=== PATIENT | female | born 1985 | race Caucasian/White ===

== ENCOUNTER 2016-12-26 11:26 | Emergency (ER) | payer OTHER ==
[~2016-12-26] VITALS: Ht 157.5 cm; Wt 59.9 kg
[2016-12-26 11:26] VITALS: BP 137/84
[~2016-12-26 11:26] MED LIST: ACET500T68 PO
--- NOTE | 2016-12-26 12:37 | RAD ---
Three-view study of the left wrist Indications: Picked up a 50 pound box and heard a crack/pop in left wrist. Left wrist pain. Findings: No acute fracture or dislocation or osteolytic process is seen. Alignment is normal. IMPRESSION: No acute fracture.
--- NOTE | 2016-12-26 12:41 | PHYS DOC ---
General Chief Complaint: WRIST PAIN Stated Complaint: WRIST PAIN Time Seen by MD: 11:39 Source: patient Exam Limitations: no limitations Problems: History of Present Illness Initial Comments Patient is a 31-year-old female who comes emergency department complaining of a Worker's Compensation injury to her left wrist. Patient states immediately prior to ED arrival she was at work lifting a 50 pound box of labels over her head. She says while she was struggling with the box over her head she felt a pop at her posterior medial wrist causing severe pain. She states that currently she has pain at her medial wrist which radiates proximally up to her elbow. Symptoms are better with rest worsened with moving and jarring. She denies numbness tingling weakness or radiating symptoms otherwise. No pre-arrival treatment patient is normally healthy immunizations are up-to-date. Onset: just prior to arrival Severity: mild Pain/Injury Location: left wrist Method of Injury: other Modifying Factors: worse with jarring, worse with movement, improves with rest Allergies: Coded Allergies: mupirocin (Verified Allergy, Unknown, Rash, 01/17/16) Past Medical History Medical History: no pertinent history Surgical History: noncontributory, other Social History Smoker: non-smoker Alcohol: none Drugs: none Review of Systems Constitutional: denies chills, denies fever Respiratory: denies cough, denies shortness of breath Cardiovascular: denies chest pain, denies palpitations Gastrointestinal: denies diarrhea, denies nausea, denies vomiting Musculoskeletal: see HPI Psychiatric/Neurological: see HPI Physical Exam General Appearance: WD/WN, no apparent distress Neck: non-tender, supple Cardiovascular/Respiratory: normal peripheral pulses, no respiratory distress Wrist: limited ROM, soft tissue tenderness (generalized medial left wrist tenderness without focality, no swelling ecchymosis or skin changes noted. No palpable bony deformity and no bony tenderness ligaments and tendons are intact. Extremity is neurovascularly intact.) Hand: normal inspection, non-tender, no evidence of injury Neurologic/Tendon: normal sensation, normal motor functions, normal tendon functions, responds to pain, no evidence tendon injury Psychiatric: alert, oriented x 3 Skin: normal color, warm/dry Orders, Labs, Meds PATIENT: GASTON GRAHAM ACCOUNT: [id number] : 1985 LOCATION: ER AGE: 31 SEX: F EXAM STATUS: REG ER ORD. PHYSICIAN: NIKO AKBAR DO REASON: trauma/pain PROCEDURE: WRIST 3V LEFT Three-view study of the left wrist Indications: Picked up a 50 pound box and heard a crack/pop in left wrist. Left wrist pain. Findings: No acute fracture or dislocation or osteolytic process is seen. Alignment is normal. IMPRESSION: No acute fracture. DICTATED AND SIGNED BY: SERENA JOINER MD DATE: 12/26/16 1233 CC: PCP,RADHA; NIKO AKBAR DO ~ I was notified by staff that we did not have a splint to fit the patient. She was placed in an Jorge wrap neurovascularly intact after application. She received a prescription to fill for a splint. Departure Time of Disposition: 12:47 Disposition: 01 HOME, SELF-CARE Diagnosis: left wrist sprain Condition: GOOD Patient Instructions: JAIDEN - Routine Care for Injuries, [id number], Wrist Pain, [id number] Additional Instructions: JAIDEN, see handout. Work restriction: no use left hand until cleared by doctor. Wear splint left wrist as needed. OTC tylenol/ibuprofen as needed. Follow up with your doctor next week for recheck and further activity restriction modifications. Follow up with your employer regarding Work Comp. Return to ED with new or changing symptoms. NIKO AKBAR DO Dec 26, 2016 12:41
== END 2016-12-26 12:55 | disposition home or self-care (01) ==
LOC: ER 11:26
DX: S63.502A Unspecified sprain of left wrist, initial encounter (principal); Z88.1 Allergy status to other antibiotic agents; X58.XXXA Exposure to other specified factors, initial encounter; Y93.89 Activity, other specified; Y99.8 Other external cause status; Y92.89 Other specified places as the place of occurrence of the external cause
CPT/HCPCS: 73110; 99284

== ENCOUNTER → 2019-12-10 | Outpatient (CLI) | payer OTHER ==
--- NOTE | 2019-12-10 14:53 | RAD ---
EXAMINATION: DIGITAL DIAGNOSTIC BILATERAL History: Reason: L BREAST LUMP / Spl. Instructions: / History: Comparison: None. This exam is the baseline. Technique: Bilateral digital diagnostic mammogram views were obtained. CAD was utilized. 3-D tomosynthesis images were acquired. Findings: Breast Tissue Density B : There are scattered areas of fibroglandular density. There are no dominant masses, suspicious microcalcifications, or architectural distortion. Far left posterior outer breast 0.4 cm diameter asymmetry identified represents a lymph node is present. It is smoothly marginated. A larger lymph node is present at the left upper-outer breast. Asymmetry at the left outer breast otherwise is also seen but no suspicious mass lesion evident on spot compression imaging. This probably represents asymmetric glandular tissue. No palpable abnormalities present at the site of the marker placed at the left upper outer breast. IMPRESSION: No suspicious finding to correspond with the palpable abnormality reported at the left upper-outer breast. Small asymmetry in the far posterior left outer breast probably represents a lymph node. Further evaluation ultrasound examination of the left upper-outer breast and axilla is recommended. BI-RADS Category 0: Incomplete: Need additional imaging evaluation. The images were reviewed with computer aided detection. Patient information is entered into the reminder system with a target due date for the next screening mammogram. Mammography is the most sensitive method for finding small breast cancers, but it does not detect them all and is not a substitute for careful clinical examination. A negative mammogram does not negate a clinically suspicious finding and should not result in delay in biopsying a clinically suspicious abnormality. "Our facility is accredited by the [employer] Mammography Program." Electronically signed by: Bran Frias MD (12/10/2019 2:49 PM) [place] [id number]
== END ==
LOC: MAMMO 13:24
PROVIDERS: ATTEND Nurse Practitioner Family
DX: N63.21 Unspecified lump in the left breast, upper outer quadrant (principal)
CPT/HCPCS: 77066

== ENCOUNTER → 2020-01-08 | Outpatient (CLI) | payer OTHER ==
--- NOTE | 2020-01-08 13:54 | RAD ---
Examination: Limited left breast ultrasound. INDICATION: 34-year-old woman with left breast lump recommended for ultrasound evaluation following initial diagnostic mammographic imaging. She reports that she experiences areas of intermittent pain and firmness in the lateral left breast that comes and goes. At this visit, the area of palpable concern has resolved. Patient reports a history of breast cancer in first and second degree relatives at ages 65 and 55. COMPARISON: Bilateral baseline diagnostic mammogram of 12/10/2019 FINDINGS: Targeted ultrasound of the patient's reported area of palpable concern in the approximate 1:00 position 8 cm from the nipple reveals a sonographically benign 5 mm oval circumscribed parallel orientation hypoechoic mass with low-level internal echoes. Adjacent to it is more heterogeneously hypoechoic tissue with posterior shadowing that could reflect an area of evolving noncalcified fat necrosis. Sonographic survey of the left axilla was unremarkable. Given the resolution clinical symptoms by this visit, the benign mammographic findings on initial evaluation on 12/10/2019, and the benign findings on targeted ultrasound at this visit, this area is felt to represent probable benign sonographic finding and is recommended for short-term follow-up mammographic imaging in 6 months with option of targeted left breast ultrasound at that time as well if indicated. IMPRESSION: Probably benign ultrasound findings in the left breast. Recommend six-month follow-up left diagnostic mammogram with possible ultrasound. BI-RADS Category 3 Probably benign findings
== END | disposition home or self-care (01) ==
LOC: US 12:48
PROVIDERS: ATTEND Nurse Practitioner Family
DX: R92.8 Other abnormal and inconclusive findings on diagnostic imaging of breast (principal); N63.21 Unspecified lump in the left breast, upper outer quadrant
CPT/HCPCS: 76641

== ENCOUNTER 2020-02-13 18:15 | Emergency (ER) | payer SELFPAY ==
[~2020-02-13] VITALS: Ht 157.5 cm; Wt 72.7 kg
[2020-02-13 18:24] VITALS: BP 136/92
[2020-02-13] MEDS ORDERED: BUTA1TAB23 PO (18:42)
[2020-02-13] MEDS ORDERED: ONDA4TAB12 PO (18:42)
--- NOTE | 2020-02-13 18:43 | PHYS DOC ---
Past History Past Medical History: No Pertinent History Past Surgical History: Tubal ligation Alcohol Use: Occasionally Drug Use: None General Adult EDM: Chief Complaint: HEADACHE HPI: HPI: Patient is a [age] year old [sex] who presents with [] Review of Systems: Review of Systems: Constitutional: Denies fever or chills Eyes: Denies change in visual acuity HENT: Denies nasal congestion or sore throat Respiratory: Denies cough or shortness of breath Cardiovascular: Denies chest pain or edema GI: Denies abdominal pain, nausea, vomiting, bloody stools or diarrhea : Denies dysuria Musculoskeletal: Denies back pain or joint pain Integument: Denies rash Neurologic: Denies headache, focal weakness or sensory changes Endocrine: Denies polyuria or polydipsia Lymphatic: Denies swollen glands Psychiatric: Denies depression or anxiety Heart Score: Risk Factors: Risk Factors: DM, Current or recent (<one month) smoker, HTN, HLP, family history of CAD, obesity. Risk Scores: Score 0 - 3: 2.5% MACE over next 6 weeks - Discharge Home Score 4 - 6: 20.3% MACE over next 6 weeks - Admit for Clinical Observation Score 7 - 10: 72.7% MACE over next 6 weeks - Early Invasive Strategies Allergies: Allergies: Allergies Coded Allergies Type Severity Reaction Last Updated Verified mupirocin Allergy Unknown Rash 01/17/16 Yes Physical Exam: PE: Constitutional: Well developed, well nourished, no acute distress, non-toxic appearance. [] HENT: Normocephalic, atraumatic, bilateral external ears normal, oropharynx moist, no oral exudates, nose normal. [] Eyes: PERRLA, EOMI, conjunctiva normal, no discharge. [] Neck: Normal range of motion, no tenderness, supple, no stridor. [] Cardiovascular:Heart rate regular rhythm, no murmur [] Lungs & Thorax: Bilateral breath sounds clear to auscultation [] Abdomen: Bowel sounds normal, soft, no tenderness, no masses, no pulsatile masses. [] Skin: Warm, dry, no erythema, no rash. [] Back: No tenderness, no CVA tenderness. [] Extremities: No tenderness, no cyanosis, no clubbing, ROM intact, no edema. [] Neurologic: Alert and oriented X 3, normal motor function, normal sensory function, no focal deficits noted. [] Psychologic: Affect normal, judgement normal, mood normal. [] Current Patient Data: Vital Signs: Vital Signs Date Time Temp Pulse Resp B/P (MAP) Pulse Ox O2 Delivery O2 Flow Rate FiO2 02/13/20 18:24 97.9 102 18 136/92 (107) 100 EKG: EKG: [] Radiology/Procedures: Radiology/Procedures: [] Course & Med Decision Making: Course & Med Decision Making Pertinent Labs and Imaging studies reviewed. (See chart for details) [] Dragon Disclaimer: Dragon Disclaimer: This electronic medical record was generated, in whole or in part, using a voice recognition dictation system. Departure Departure: Impression: Primary Impression: Post-concussion headache Disposition: 01 HOME/RESIDENCE PRIOR TO ADM Condition: STABLE Referrals: JOSUE BRUNNER (PCP) NIKHIL BARRY MD Patient Instructions: Concussion and Brain Injury, [id number]-bz-[id number], Headache, FAQs Scripts Ondansetron (ONDANSETRON ODT) 4 Mg Tab.rapdis 1 TAB PO PRN Q6-8HRS PRN for NAUSEA, #16 TAB Prov: JEROD ADHIKARI DO 02/13/20 Butalb/Acetaminophen/Caffeine ([id number] 50-325-40) 1 Each Tablet 1 EACH PO Q6HRS PRN for HEADACHE, #14 TAB Prov: JEROD ADHIKARI DO 02/13/20 Justification of Admission: Justification of Admission: Justification of Admission Dx: N/A JEROD ADHIKARI DO Feb 13, 2020 18:43
[2020-02-13] MEDS ORDERED: ONDANSETRON ODT 4 MG TAB.RAPDIS PO ONE (18:45)
[2020-02-13] MEDS ORDERED: BUTALB/APAP/CAFEIN 50/325/40MG TABLET. PO ONE (18:45)
[2020-02-13] MEDS ORDERED: DEXAMETHASONE SOD PHOS 10 MG/ML VIAL. IM ONE (18:45)
== END 2020-02-13 18:51 | disposition home or self-care (01) ==
LOC: ER 18:15
DX: R51 Headache (principal); F07.81 Postconcussional syndrome; Z88.1 Allergy status to other antibiotic agents
CPT/HCPCS: 99281

== ENCOUNTER 2020-04-03 14:51 | Emergency (ER) | payer BC ==
[~2020-04-03] VITALS: Ht 157.5 cm; Wt 59.1 kg
[~2020-04-03 14:51] MED LIST changes: +BUTA1TAB23 PO; +ONDA4TAB12 PO
--- NOTE | 2020-04-03 15:22 | PHYS DOC ---
Past History Past Medical History: No Pertinent History (JUVENAL HAND APRN) Past Surgical History: Tubal ligation (JUVENAL HAND APRN) Smoking: Cigarettes Alcohol Use: Occasionally Drug Use: None (JUVENAL HAND APRN) Adult General Chief Complaint Chief Complaint: HEAD INJURY/TRAUMA HPI HPI Patient is a 34 old female patient who presents with head pain after striking her head on an object today. Patient reports she was in her bathroom, and a broken up, she went to stand up, striking her neck and head on the drawer. Reports this occurred possibly 1 hour prior to her come to the ER, states she just saw stars, states she did not lose consciousness. Reports she had a prior similar episode approximately 1 month ago, with altered mental status at that time, reports she is concerned was to make sure that nothing is wrong after striking her head against a day as she has continued to have some pain in her neck and pain in her head. She had taken 500mg naproxen after the incident, but still continues to have pain. States she does have pain when she moves her head to the right, denies any visual changes, denies any loss of bowel or bladder. Denies any chance of at this time. She does report she has a history of migraines, which have been onset for stimuli such as bright lights or loud noises, states none of these have happened with her today. The states she takes naproxen for these and they usually help. (JUVENAL HAND APRN) Review of Systems Review of Systems Constitutional: Denies fever or chills [] Eyes: Denies change in visual acuity, redness, does report pain behind her eyes, similar to a migraine started after striking her head and has been getting worse since that time [] HENT: Denies nasal congestion or sore throat [] Respiratory: Denies cough or shortness of breath [] Cardiovascular: No additional information not addressed in HPI [] GI: Denies abdominal pain, nausea, vomiting, bloody stools or diarrhea [] : Denies dysuria or hematuria [] Musculoskeletal: Denies back pain or joint pain [] Integument: Denies rash or skin lesions [] Neurologic: Denies focal weakness or sensory changes [] does report headache Endocrine: Denies polyuria or polydipsia [] All other systems were reviewed and found to be within normal limits, except as documented in this note. (JUVENAL HAND APRN) Allergies Allergies Allergies Coded Allergies Type Severity Reaction Last Updated Verified mupirocin Allergy Unknown Rash 01/17/16 Yes (JUVENAL HAND APRN) Physical Exam Physical Exam Constitutional: Well developed, well nourished, no acute distress, non-toxic appearance. [] HENT: Normocephalic, atraumatic, bilateral external ears normal, oropharynx moist, no oral exudates, nose normal. Eyes: PERRLA, EOMI, conjunctiva normal, no discharge. [] Neck: Normal range of motion, no tenderness, supple, no stridor. [] Tenderness to C2-C3 area without bruising or erythema. No discomfort moving head to left, does report discomfort when moving to head to right. No discomfort when moving head up or down. [] Cardiovascular:Heart rate regular rhythm, no murmur [] Lungs & Thorax: Bilateral breath sounds clear to auscultation [] Abdomen: Bowel sounds normal, soft, no tenderness, no masses, no pulsatile masses. [] Skin: Warm, dry, no erythema, no rash. [] Back: No tenderness, no CVA tenderness. [] Extremities: No tenderness, no cyanosis, no clubbing, ROM intact, no edema. [] Neurologic: Alert and oriented X 3, normal motor function, normal sensory function, no focal deficits noted. [] Psychologic: Affect normal, judgement normal, mood normal. [] (JUVENAL HAND APRN) EKG EKG [] (JUVENAL HAND APRN) Radiology/Procedures Radiology/Procedures []PROCEDURE: CT HEAD AND CERVICAL SPINE WO EXAM: CT Head without IV contrast INDICATION: Reason: neck pain, blunt trauma / Spl. Instructions: / History: TECHNIQUE: Multi-detector row CT images were obtained of the head without the use of IV contrast. All CT scans performed at this facility utilize dose optimization techniques as appropriate to the exam, including the following: Automated exposure control and adjustment of the mA and/or KV according to patient size (this includes techniques or standardized protocols for targeted exams where dose is indication/reason for exam). COMPARISON: None FINDINGS: BRAIN PARENCHYMA: No evidence of acute intraparenchymal hemorrhage or infarct. No abnormal parenchymal density or mass. VENTRICLES & EXTRA-AXIAL SPACES: Ventricles are within normal limits. Basilar cisterns are patent. No pathologic extra-axial fluid collection or mass. ORBITS: Orbital contents are unremarkable. SINUSES: Visualized paranasal sinuses and mastoid air cells are clear. OSSEOUS & SOFT TISSUES: Calvarium and skull base are intact. IMPRESSION: Normal CT of the head without contrast. EXAM: CT Cervical Spine without IV contrast INDICATION: Reason: neck pain, blunt trauma / Spl. Instructions: / History: TECHNIQUE: Multi-detector row CT images were obtained through the cervical spine without the use of IV contrast. Post-processing sagittal and coronal reconstructed images were obtained for interpretation. All CT scans performed at this facility utilize dose optimization techniques as appropriate to the exam, including the following: Automated exposure control and adjustment of the mA and/or KV according to patient size (this includes techniques or standardized protocols for targeted exams where dose is indication/reason for exam). COMPARISON: None FINDINGS: CRANIOCERVICAL JUNCTION: Unremarkable. ALIGNMENT: Alignment is within normal limits. OSSEOUS: No evidence of fracture or bone destruction. DISC SPACES: Unremarkable. FACET JOINTS: Unremarkable. SPINAL CANAL: Unremarkable. NEUROFORAMINA: Unremarkable. SOFT TISSUES: Unremarkable. IMPRESSION: Normal CT of the cervical spine. Electronically signed by: Blanquita Pineda MD (04/03/2020 3:39 PM) [facility] (JUVENAL HAND APRN) Heart Score Risk Factors: Risk Factors: DM, Current or recent (<one month) smoker, HTN, HLP, family history of CAD, obesity. Risk Scores: Risk Factors: DM, Current or recent (<one month) smoker, HTN, HLP, family history of CAD, obesity. (JUVENAL HAND APRN) Course & Med Decision Making Course & Med Decision Making Pertinent Labs and Imaging studies reviewed. (See chart for details) [] Reviewed results with patient with no noted deformity or concerning findings on her imaging, discussed with patient again importance of resting, trying to avoid additional head trauma. Patient in agreement to return home, take naproxen, follow-up with her primary care as needed. Patient does report she only came in today because her primary care office was closed. Patient no further questions or concerns this time. (JUVENAL HAND APRN) Dragon Disclaimer Dragon Disclaimer This electronic medical record was generated, in whole or in part, using a voice recognition dictation system. (JUVENAL HAND APRN) Departure Departure: Impression: Primary Impression: Head injury due to trauma Additional Impression: Concussion Disposition: 01 DC HOME SELF CARE/HOMELESS Condition: GOOD Referrals: JOSUE BRUNNER (PCP) Patient Instructions: Concussion and Brain Injury Additional Instructions: As we discussed, make sure you are given your brain a couple days rest. Avoid any high brain stimulating activities for the next 3 to 4 days. Try to give your brain a few days of rest to prevent further headaches and continue to take Tylenol ibuprofen or naproxen as needed for discomfort. Attending Signature Attending Signature I have reviewed the PA/ANALYTICAL STATISTICIAN's note and plan of care. I was available for con sultation as needed during the patient's visit in the emergency department. I agree with the clinical impression, plan, and disposition. (JEROD ADHIKARI DO) Problem Qualifiers Primary Impression: Head injury due to trauma Encounter type: initial encounter Qualified Codes: S09.90XA - Unspecified injury of head, initial encounter Additional Impression: Concussion Encounter type: initial encounter Loss of consciousness presence/duration: without LOC Qualified Codes: S06.0X0A - Concussion without loss of consciousness, initial encounter JUVENAL HAND APRN Apr 03, 2020 15:21 JEROD ADHIKARI DO Apr 03, 2020 22:06
--- NOTE | 2020-04-03 15:42 | RAD ---
EXAM: CT Head without IV contrast INDICATION: Reason: neck pain, blunt trauma / Spl. Instructions: / History: TECHNIQUE: Multi-detector row CT images were obtained of the head without the use of IV contrast. All CT scans performed at this facility utilize dose optimization techniques as appropriate to the exam, including the following: Automated exposure control and adjustment of the mA and/or KV according to patient size (this includes techniques or standardized protocols for targeted exams where dose is indication/reason for exam). COMPARISON: None FINDINGS: BRAIN PARENCHYMA: No evidence of acute intraparenchymal hemorrhage or infarct. No abnormal parenchymal density or mass. VENTRICLES & EXTRA-AXIAL SPACES: Ventricles are within normal limits. Basilar cisterns are patent. No pathologic extra-axial fluid collection or mass. ORBITS: Orbital contents are unremarkable. SINUSES: Visualized paranasal sinuses and mastoid air cells are clear. OSSEOUS & SOFT TISSUES: Calvarium and skull base are intact. IMPRESSION: Normal CT of the head without contrast. EXAM: CT Cervical Spine without IV contrast INDICATION: Reason: neck pain, blunt trauma / Spl. Instructions: / History: TECHNIQUE: Multi-detector row CT images were obtained through the cervical spine without the use of IV contrast. Post-processing sagittal and coronal reconstructed images were obtained for interpretation. All CT scans performed at this facility utilize dose optimization techniques as appropriate to the exam, including the following: Automated exposure control and adjustment of the mA and/or KV according to patient size (this includes techniques or standardized protocols for targeted exams where dose is indication/reason for exam). COMPARISON: None FINDINGS: CRANIOCERVICAL JUNCTION: Unremarkable. ALIGNMENT: Alignment is within normal limits. OSSEOUS: No evidence of fracture or bone destruction. DISC SPACES: Unremarkable. FACET JOINTS: Unremarkable. SPINAL CANAL: Unremarkable. NEUROFORAMINA: Unremarkable. SOFT TISSUES: Unremarkable. IMPRESSION: Normal CT of the cervical spine. Electronically signed by: Blanquita Pineda MD (04/03/2020 3:39 PM) [facility]
[2020-04-03 16:15] VITALS: BP 123/81
== END 2020-04-03 16:15 | disposition home or self-care (01) ==
LOC: ER 14:51
DX: S06.0X1A Concussion with loss of consciousness of 30 minutes or less, initial encounter (principal); R51.9 Headache, unspecified; R41.82 Altered mental status, unspecified; F17.210 Nicotine dependence, cigarettes, uncomplicated; Z98.51 Tubal ligation status; W22.8XXA Striking against or struck by other objects, initial encounter; Y93.89 Activity, other specified; Y92.89 Other specified places as the place of occurrence of the external cause; Y99.8 Other external cause status
CPT/HCPCS: 70450; 72125; 99285

== ENCOUNTER 2020-09-25 10:34 | Emergency (ER) | payer SELFPAY ==
[~2020-09-25] VITALS: Ht 157.5 cm; Wt 65.9 kg
[2020-09-25 10:44] VITALS: BP 135/86
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
== END 2020-09-25 12:04 | disposition home or self-care (01) ==
LOC: ER 10:34
DX: S50.01XA Contusion of right elbow, initial encounter (principal); F17.210 Nicotine dependence, cigarettes, uncomplicated; Z88.1 Allergy status to other antibiotic agents; V09.9XXA Pedestrian injured in unspecified transport accident, initial encounter; Y93.01 Activity, walking, marching and hiking; Y92.89 Other specified places as the place of occurrence of the external cause; Y99.8 Other external cause status
CPT/HCPCS: 73080; 99283